=== PATIENT | male | born 1960 | race Caucasian/White ===

== ENCOUNTER 2018-06-20 11:04 | Inpatient (IN) | payer OTHER ==
[~2018-06-20 11:04] MED LIST: SOD CHLORIDE 0.9% 1,000 ML IV
[2018-06-20 12:36] LABS: ADD MAN DIFF? NO
[2018-06-20 12:39] LABS: WHITE BLOOD COUNT 5.4 10^3/ul (4.8-10.8)
[2018-06-20 12:39] LABS: BASOPHILS % 0.7 % (0.0-2.0); EOSINOPHILS # 0.1 10^3/ul (0.0-0.5); EOSINOPHILS % 1.9 % (0.0-7.0); HEMATOCRIT 42.2 % (42.0-52.0); HEMOGLOBIN 13.6 g/dl (14.0-18.0); LYMPHOCYTES % 17.8 % (15.0-51.0); MEAN CORPUSCULAR HEMOGLOBIN 28.5 pg (29.0-33.0); MEAN CORPUSCULAR HGB CONC 32.2 g/dl (32.0-37.0); MEAN CORPUSCULAR VOLUME 88.3 fl (82.0-101.0); MEAN PLATELET VOLUME 11.1 fl (7.4-10.4); MONOCYTE # 0.4 10^3/ul (0.3-0.9); MONOCYTES % 7.4 % (0.0-11.0); NEUTROPHIL # 3.9 10^3/ul (1.6-7.5); NEUTROPHILS % 71.8 % (39.0-77.0); PLATELET COUNT 217 10^3/UL (140-415); RED BLOOD COUNT 4.78 10^6/ul (4.70-6.10); RED CELL DISTRIBUTION WIDTH 13.5 % (11.5-14.5)
[2018-06-20 12:57] LABS: INR 0.92; PROTIME 12.5 Sec (11.9-14.9)
[2018-06-20 12:58] LABS: ALANINE AMINOTRANSFERASE 34 IU/L (13-69); ALBUMIN 4.3 g/dl (3.3-4.9); ALBUMIN/GLOBULIN RATIO 1.34; ALKALINE PHOSPHATASE 78 IU/L (42-121); ANION GAP 9 (5-13); ASPARTATE AMINO TRANSFERASE 43 IU/L (15-46); BILIRUBIN,INDIRECT 1.1 mg/dl (0-1.1); BILIRUBIN,TOTAL 1.1 mg/dl (0.2-1.3); CALCIUM 9.3 mg/dl (8.4-10.2); CARBON DIOXIDE 28 mmol/L (21-31); CHLORIDE 107 mmol/L (97-110); Estimated GFR 47 mL/min (>60); GLUCOSE 94 mg/dl (70-220); PARTIAL THROMBOPLASTIN TIME 27.8 Sec (23.0-35.0); POTASSIUM 4.4 mmol/L (3.5-5.1); SODIUM 144 mmol/L (135-144); TOTAL PROTEIN 7.5 g/dl (6.1-8.1)
[2018-06-20 13:11] LABS: BLOOD UREA NITROGEN 27 mg/dl (7-20); CREATININE 1.55 mg/dl (0.61-1.24)
[2018-06-20] MEDS ORDERED: POLYMYXIN/BACITRACIN 1L IRRIG (14:26)
[2018-06-20] MEDS ORDERED: SUCCINYLCHOLINE CHLORIDE 100 MG/5 ML SYG IV (14:31)
[2018-06-20] MEDS ORDERED: PROPOFOL 20 ML (14:31)
[2018-06-20] MEDS ORDERED: LIDOCAINE 2% (SDV) 5 ML INJ (14:31)
[2018-06-20] MEDS ORDERED: MEPERIDINE 100 MG INJ (14:31)
[2018-06-20] MEDS ORDERED: GLYCOPYRROLATE 0.4 MG INJ ×3 (14:31→15:00)
[2018-06-20] MEDS ORDERED: ROCURONIUM 50 MG INJ (14:31)
[2018-06-20] MEDS ORDERED: CEFAZOLIN 1 GM INJ (15:00)
[2018-06-20] MEDS ORDERED: NEOSTIGMINE 10 MG INJ (15:00)
[2018-06-20] MEDS: BUPIVACAINE 0.25% (MPF) 30 ML INJ (15:19)
[2018-06-20] MEDS: POLYMYXIN/BACITRACIN 1L IRRIG IRR (15:19)
[2018-06-20] MEDS ORDERED: DIPHENHYDRAMINE 50 MG INJ IV (15:30)
[2018-06-20] MEDS ORDERED: LABETALOL HCL 20MG INJ IV (15:30)
[2018-06-20] MEDS ORDERED: EPHEDrine SULFATE 50 MG/5 ML SYG IV (15:30)
[2018-06-20] MEDS ORDERED: HYDROmorphONE 1 MG/5 ML IV SYRINGE IV ×2 (15:30)
[2018-06-20] MEDS ORDERED: MIDAZOLAM 1 MG/ML 2 ML INJ IV (15:30)
[2018-06-20] MEDS ORDERED: OXYCODONE/ACETAMINOPHEN (5/325) TAB PO (15:30)
[2018-06-20] MEDS ORDERED: FENTAnyl 50 MCG/ML VIAL IV (15:30)
[2018-06-20] MEDS ORDERED: METOCLOPRAMIDE 10 MG INJ IV (15:30)
[2018-06-20] MEDS: HYDROCODONE/APAP (5/325) TAB PO (16:00)
[2018-06-20] MEDS: MEPERIDINE 25 MG INJ IV (16:10)
[2018-06-20] MEDS: ONDANSETRON 4 MG INJ IV (16:10)
[2018-06-20] MEDS: CEFAZOLIN 2 GM/50 ML (PMX) 50 ML IVPB ×2 (16:22→17:19)
[2018-06-20] MEDS ORDERED: NALOXONE (0.4 MG/ML) INJ (17:11)
[2018-06-20] MEDS: NALOXONE (0.4 MG/ML) INJ IV (17:19)
[2018-06-20] MEDS: OXYCODONE/ACETAMINOPHEN (5/325) TAB PO (17:25)
[2018-06-20] MEDS: FENTAnyl 50 MCG/ML VIAL IV ×2 (17:32→17:54)
[2018-06-20] MEDS: HYDROmorphONE 1 MG/5 ML IV SYRINGE IV (18:19)
[2018-06-20] MEDS: hydrALAzine 20 MG INJ IV (18:40)
[2018-06-20] MEDS: SOD CHLORIDE 0.45% 1,000 ML IV ×2 (19:45→20:00)
[2018-06-21] MEDS ORDERED: ACETAMINOPHEN 500 MG TAB PO
[2018-06-21] MEDS ORDERED: ONDANSETRON 4 MG INJ IV
[2018-06-21] MEDS ORDERED: hydrALAzine 20 MG INJ IV
[2018-06-21] MEDS: CEFAZOLIN 2 GM/50 ML (PMX) 50 ML IVPB (03:46)
[2018-06-21] MEDS: SOD CHLORIDE 0.45% 1,000 ML IV ×2 (05:45→16:01)
[2018-06-21 05:53] LABS: ANION GAP 8 (5-13); BLOOD UREA NITROGEN 26 mg/dl (7-20); CALCIUM 8.6 mg/dl (8.4-10.2); CARBON DIOXIDE 27 mmol/L (21-31); CHLORIDE 104 mmol/L (97-110); CREATININE 1.42 mg/dl (0.61-1.24); Estimated GFR 52 mL/min (>60); GLUCOSE 104 mg/dl (70-220); POTASSIUM 3.9 mmol/L (3.5-5.1); SODIUM 139 mmol/L (135-144)
[2018-06-21] MEDS: OXYCODONE/ACETAMINOPHEN (5/325) TAB PO ×2 (08:38→14:07)
[2018-06-21] MEDS: LISINOPRIL 20 MG TAB PO (08:41)
[2018-06-21] MEDS: morphine 2 MG INJ IV (09:33)
[2018-06-21] MEDS: KETOROLAC 30 MG INJ IV ×2 (14:07→20:21)
[2018-06-21] MEDS: TAMSULOSIN (SR) 0.4 MG CAP PO (20:21)
[2018-06-22] MEDS: SOD CHLORIDE 0.45% 1,000 ML IV ×4 (01:45→21:45)
[2018-06-22] MEDS: KETOROLAC 30 MG INJ IV ×5 (03:00→20:42)
[2018-06-22] MEDS: LISINOPRIL 20 MG TAB PO (09:00)
[2018-06-22] MEDS: TAMSULOSIN (SR) 0.4 MG CAP PO (20:42)
[2018-06-23] MEDS: KETOROLAC 30 MG INJ IV ×3 (02:00→14:10)
[2018-06-23] MEDS: SOD CHLORIDE 0.45% 1,000 ML IV (02:00)
[2018-06-23 05:37] LABS: ADD MAN DIFF? NO
[2018-06-23 05:51] LABS: BASOPHILS % 0.4 % (0.0-2.0); EOSINOPHILS # 0.1 10^3/ul (0.0-0.5); EOSINOPHILS % 1.5 % (0.0-7.0); HEMATOCRIT 40.4 % (42.0-52.0); HEMOGLOBIN 13.5 g/dl (14.0-18.0); LYMPHOCYTES # 0.9 10^3/ul (0.8-2.9); LYMPHOCYTES % 12.2 % (15.0-51.0); MEAN CORPUSCULAR HEMOGLOBIN 28.8 pg (29.0-33.0); MEAN CORPUSCULAR HGB CONC 33.4 g/dl (32.0-37.0); MEAN CORPUSCULAR VOLUME 86.3 fl (82.0-101.0); MEAN PLATELET VOLUME 11.5 fl (7.4-10.4); MONOCYTE # 0.8 10^3/ul (0.3-0.9); MONOCYTES % 10.4 % (0.0-11.0); NEUTROPHIL # 5.5 10^3/ul (1.6-7.5); PLATELET COUNT 202 10^3/UL (140-415); RED BLOOD COUNT 4.68 10^6/ul (4.70-6.10); RED CELL DISTRIBUTION WIDTH 13.2 % (11.5-14.5)
[2018-06-23 05:51] LABS: WHITE BLOOD COUNT 7.3 10^3/ul (4.8-10.8)
[2018-06-23 06:27] LABS: ANION GAP 10 (5-13); BLOOD UREA NITROGEN 25 mg/dl (7-20); CALCIUM 8.8 mg/dl (8.4-10.2); CARBON DIOXIDE 26 mmol/L (21-31); CHLORIDE 103 mmol/L (97-110); CREATININE 1.32 mg/dl (0.61-1.24); Estimated GFR 56 mL/min (>60); GLUCOSE 95 mg/dl (70-220); POTASSIUM 3.9 mmol/L (3.5-5.1); SODIUM 139 mmol/L (135-144)
[2018-06-23] MEDS: LISINOPRIL 20 MG TAB PO (08:37)
== END 2018-06-23 15:15 | disposition home or self-care (01) | DRG 352 ==
LOC: SDS 11:04 → REC 17:58 → MS1 18:52
PROC: 0YU50JZ Supplement Right Inguinal Region with Synthetic Substitute, Open Approach (ICD-10-PCS; principal; 2018-06-20 14:30)
DX: K40.30 Unilateral inguinal hernia, with obstruction, without gangrene, not specified as recurrent (principal); N40.0 Benign prostatic hyperplasia without lower urinary tract symptoms; I12.9 Hypertensive chronic kidney disease with stage 1 through stage 4 chronic kidney disease, or unspecified chronic kidney disease; N18.3 Chronic kidney disease, stage 3 (moderate); N50.89 Other specified disorders of the male genital organs; G89.18 Other acute postprocedural pain
CPT/HCPCS: 71045; 80048; 80053; 85025; 85610; 85730; 88302; 93005